=== PATIENT | male | born 1945 | race Two or more races ===

== ENCOUNTER 2018-09-13 01:09 | Inpatient (IN) | payer OTHER ==
[~2018-09-13] VITALS: Ht 175.3 cm; Wt 113.4 kg
[~2018-09-13 01:09] MED LIST: CIPRO500 MG PO; DIOVAN HCT 161 UDTAB PO; NORVASC10 MG; TAMS0.4C PO; TOPROL XL100 MG PO; ULTRACET PO; VASOFLEX FORTE1 CAP PO
[2018-09-13] MEDS ORDERED: NORVASC5 MG (01:25)
[2018-09-13] MEDS ORDERED: LOSARTAN-HCTZ1 EAC2 (01:25)
[2018-09-16] MEDS ORDERED: OSEL75CA PO (12:15)
[2018-09-16] MEDS ORDERED: VENTOLIN HFA18 GM IH (12:16)
[2018-09-16] MEDS ORDERED: CEFDINIR300 MG PO (12:20)
[2018-09-16] MEDS ORDERED: INTESTINEX680 M1 PO (12:20)
[2018-09-16] MEDS ORDERED: ZANTAC150 MG PO (12:21)
== END 2018-09-16 14:10 | disposition home or self-care (01) | DRG 191 ==
LOC: ER 01:09 → MEDJ 13:57
PROVIDERS: ADMIT Internal Medicine
PROC: 4A033R1 Measurement of Arterial Saturation, Peripheral, Percutaneous Approach (ICD-10-PCS; principal; 2018-09-13)
PROC: BB24ZZZ Computerized Tomography (CT Scan) of Bilateral Lungs (ICD-10-PCS; 2018-09-13)
PROC: B246ZZZ Ultrasonography of Right and Left Heart (ICD-10-PCS; 2018-09-13)
PROC: 3E0F7GC Introduction of Other Therapeutic Substance into Respiratory Tract, Via Natural or Artificial Opening (ICD-10-PCS; 2018-09-13)
DX: J44.9 Chronic obstructive pulmonary disease, unspecified (principal); J98.11 Atelectasis; B37.49 Other urogenital candidiasis; R09.02 Hypoxemia; E11.65 Type 2 diabetes mellitus with hyperglycemia; J11.1 Influenza due to unidentified influenza virus with other respiratory manifestations; G47.33 Obstructive sleep apnea (adult) (pediatric); B96.1 Klebsiella pneumoniae [K. pneumoniae] as the cause of diseases classified elsewhere

== ENCOUNTER 2018-09-20 14:57 | Emergency (ER) | payer OTHER ==
[~2018-09-20] VITALS: Ht 167.6 cm; Wt 110.2 kg
[~2018-09-20 14:57] MED LIST changes: +CEFDINIR300 MG PO; +INTESTINEX680 M1 PO; +LOSARTAN-HCTZ1 EAC2; +NORVASC5 MG; +OSEL75CA PO; +VENTOLIN HFA18 GM IH; +ZANTAC150 MG PO
[2018-09-20] MEDS ORDERED: RANITIDINE HCL150 M1 (15:41)
[2018-09-20] MEDS ORDERED: INTESTINEX680 M1 (15:41)
[2018-09-20] MEDS ORDERED: JANUMET XR 50-1 EAC1 (15:42)
[2018-09-20] MEDS ORDERED: VENTOLIN HFA18 GM (15:43)
[2018-09-20] MEDS ORDERED: CEFDINIR300 MG (15:43)
== END 2018-09-20 19:29 | disposition home or self-care (01) ==
LOC: ER 14:57
DX: I10 Essential (primary) hypertension (principal)

== ENCOUNTER 2018-10-09 08:04 | Outpatient (CLI) | payer OTHER ==
[~2018-10-09 08:04] MED LIST changes: +CEFDINIR300 MG; +INTESTINEX680 M1; +JANUMET XR 50-1 EAC1; +RANITIDINE HCL150 M1; +VENTOLIN HFA18 GM
== END 2018-10-09 10:24 | disposition home or self-care (01) ==
LOC: LAB 08:04
DX: N41.8 Other inflammatory diseases of prostate (principal); I10 Essential (primary) hypertension

== ENCOUNTER 2018-10-20 09:13 | Outpatient (CLI) | payer OTHER | END 2018-10-20 09:49 | disposition home or self-care (01) | LOC: LAB 09:13 | DX: E03.1 Congenital hypothyroidism without goiter (principal); E78.5 Hyperlipidemia, unspecified; E11.9 Type 2 diabetes mellitus without complications; N39.0 Urinary tract infection, site not specified; I10 Essential (primary) hypertension; Z12.11 Encounter for screening for malignant neoplasm of colon ==

== ENCOUNTER 2018-10-21 15:51 | Outpatient (CLI) | payer OTHER | END 2018-10-21 16:14 | disposition home or self-care (01) | LOC: LAB 15:51 | DX: E03.1 Congenital hypothyroidism without goiter (principal); E78.5 Hyperlipidemia, unspecified; N39.0 Urinary tract infection, site not specified; E11.9 Type 2 diabetes mellitus without complications; I10 Essential (primary) hypertension; M25.50 Pain in unspecified joint; Z12.11 Encounter for screening for malignant neoplasm of colon ==

== ENCOUNTER 2018-11-17 08:54 | Outpatient (CLI) | payer OTHER | END 2018-11-17 09:07 | disposition home or self-care (01) | LOC: LAB 08:54 | DX: R97.20 Elevated prostate specific antigen [PSA] (principal) ==

== ENCOUNTER 2019-10-31 10:37 | Outpatient (CLI) | payer OTHER | END 2019-10-31 11:00 | disposition home or self-care (01) | LOC: RAD 10:37 | DX: M54.2 Cervicalgia (principal); R13.19 Other dysphagia ==

== ENCOUNTER 2022-02-18 15:04 | Outpatient (CLI) | payer OTHER | END 2022-02-18 15:10 | disposition home or self-care (01) | LOC: RAD 15:04 | PROVIDERS: ATTEND Physical Medicine & Rehabilitation | DX: M54.59 Other low back pain (principal) ==

== ENCOUNTER 2022-05-05 19:10 | Emergency (ER) | payer OTHER ==
[~2022-05-05] VITALS: Ht 175.3 cm; Wt 99.8 kg
[2022-05-05] MEDS ORDERED: NORVASC (19:47)
[2022-05-05] MEDS ORDERED: LOSARTAN (19:47)
== END 2022-05-05 22:35 | disposition home or self-care (01) ==
LOC: ER 19:10
DX: K29.70 Gastritis, unspecified, without bleeding (principal); E11.9 Type 2 diabetes mellitus without complications; Z79.84 Long term (current) use of oral hypoglycemic drugs; I10 Essential (primary) hypertension

== ENCOUNTER 2022-05-08 10:50 | Inpatient (IN) | payer OTHER ==
[~2022-05-08] VITALS: Ht 175.3 cm; Wt 99.8 kg
[~2022-05-08 10:50] MED LIST changes: +LOSARTAN; +NORVASC
[2022-05-09] MEDS ORDERED: OXYBUTYNIN CHLO10 MG (08:20)
[2022-05-09] MEDS ORDERED: LOSARTAN-HCTZ1 EAC2 (08:20)
[2022-05-09] MEDS ORDERED: DOXAZOSIN MESYLA2 MG (08:20)
[2022-05-09] MEDS ORDERED: TAMSULOSIN HCL0.4 MG (08:20)
[2022-05-09] MEDS ORDERED: FAMOTIDINE40 MG (08:20)
[2022-05-09] MEDS ORDERED: METOPROLOL SUC100 MG (08:20)
[2022-05-09] MEDS ORDERED: AMLODIPINE BESYL5 MG (08:20)
[2022-05-09] MEDS ORDERED: GLIPIZIDE ER2.5 MG (08:20)
[2022-05-09] MEDS ORDERED: FENOFIBRATE145 MG (08:20)
[2022-05-09] MEDS ORDERED: PANTOPRAZOLE SO40 MG (08:21)
[2022-05-09] MEDS ORDERED: BUPROPION XL300 MG (08:21)
== END 2022-05-25 15:20 | disposition home or self-care (01) | DRG 445 ==
LOC: ER 10:50 → SURG 23:16 → SURH 05-20 11:39
PROVIDERS: ADMIT Internal Medicine; ATTEND Internal Medicine
PROC: BW21YZZ Computerized Tomography (CT Scan) of Abdomen and Pelvis using Other Contrast (ICD-10-PCS; principal; 2022-05-08)
PROC: CF241ZZ Tomographic (Tomo) Nuclear Medicine Imaging of Gallbladder using Technetium 99m (Tc-99m) (ICD-10-PCS; 2022-05-09)
DX: K81.0 Acute cholecystitis (principal); A04.72 Enterocolitis due to Clostridium difficile, not specified as recurrent; E11.9 Type 2 diabetes mellitus without complications; I10 Essential (primary) hypertension; Z20.822 Contact with and (suspected) exposure to COVID-19; G47.33 Obstructive sleep apnea (adult) (pediatric)

== ENCOUNTER → 2022-07-16 10:50 | Outpatient (CLI) | payer OTHER ==
[~2022-07-16 10:50] MED LIST changes: +AMLODIPINE BESYL5 MG; +BUPROPION XL300 MG; +DOXAZOSIN MESYLA2 MG; +FAMOTIDINE40 MG; +FENOFIBRATE145 MG; +GLIPIZIDE ER2.5 MG; +METOPROLOL SUC100 MG; +OXYBUTYNIN CHLO10 MG; +PANTOPRAZOLE SO40 MG; +TAMSULOSIN HCL0.4 MG
== END | disposition home or self-care (01) ==
LOC: LAB 10:50
DX: N39.0 Urinary tract infection, site not specified (principal); E11.9 Type 2 diabetes mellitus without complications; I10 Essential (primary) hypertension; D50.9 Iron deficiency anemia, unspecified; E78.2 Mixed hyperlipidemia

== ENCOUNTER 2022-09-01 14:03 | Outpatient (CLI) | payer OTHER | END 2022-09-01 14:11 | disposition home or self-care (01) | LOC: LAB 14:03 | PROVIDERS: ATTEND Internal Medicine | DX: R19.7 Diarrhea, unspecified (principal); R10.9 Unspecified abdominal pain; R10.84 Generalized abdominal pain ==

== ENCOUNTER 2022-09-11 08:52 | Outpatient (CLI) | payer OTHER | END 2022-09-11 08:53 | disposition home or self-care (01) | LOC: NUCLEAR 08:52 | PROVIDERS: ATTEND Internal Medicine Cardiovascular Disease | DX: I20.1 Angina pectoris with documented spasm (principal) | CPT/HCPCS: 78452; 93017; A9500; J0153 ==

== ENCOUNTER 2023-01-15 10:15 | Outpatient (CLI) | payer OTHER | END 2023-01-15 10:22 | disposition home or self-care (01) | LOC: LAB 10:15 | PROVIDERS: ATTEND Internal Medicine | DX: N39.0 Urinary tract infection, site not specified (principal); M25.50 Pain in unspecified joint; R19.5 Other fecal abnormalities; E11.9 Type 2 diabetes mellitus without complications; E03.1 Congenital hypothyroidism without goiter; N40.0 Benign prostatic hyperplasia without lower urinary tract symptoms; Z12.11 Encounter for screening for malignant neoplasm of colon; E78.2 Mixed hyperlipidemia; R19.7 Diarrhea, unspecified; N18.9 Chronic kidney disease, unspecified; Z87.442 Personal history of urinary calculi; D50.9 Iron deficiency anemia, unspecified ==

== ENCOUNTER 2023-03-10 08:49 | Outpatient (CLI) | payer OTHER | END 2023-03-10 09:00 | disposition home or self-care (01) | LOC: LAB 08:49 | PROVIDERS: ATTEND Psychiatry & Neurology Clinical Neurophysiology | DX: E53.8 Deficiency of other specified B group vitamins (principal); E03.8 Other specified hypothyroidism; R27.0 Ataxia, unspecified ==

== ENCOUNTER 2023-03-12 10:09 | Outpatient (CLI) | payer OTHER | END 2023-03-12 10:12 | disposition home or self-care (01) | LOC: MRI 10:09 | PROVIDERS: ATTEND Psychiatry & Neurology Clinical Neurophysiology | DX: G11.2 Late-onset cerebellar ataxia (principal) | CPT/HCPCS: 70551 ==

== ENCOUNTER 2024-09-05 22:18 | Emergency (ER) | payer OTHER ==
[~2024-09-05] VITALS: Ht 175.3 cm; Wt 98.4 kg
[2024-09-06] MEDS ORDERED: OxyCODONE HCL/APAP UD (PERCOCET) PO STA (00:25)
[2024-09-06] MEDS ORDERED: KETOROLAC TROMETHAMINE 30 MG VIAL IV STA (00:25)
[2024-09-06 00:52] LABS: HEMATOCRIT 39.6 % (39.0-48.0); HEMOGLOBIN 13.3 g/dL (13-16.00); MEAN CELL VOLUME 88.9 fL (80.0-100.00); MEAN CORPUSCULAR HEMOGLOBIN 29.8 pg (27.00-32.0); MEAN CORPUSCULAR HGB CONC 33.5 g/dl (32.0-36.0); PLATELET COUNT 321 K/uL (150-450); RED BLOOD COUNT 4.46 M/uL (4.00-6.00); RED CELL DISTRIBUTION WIDTH 15.9 % (11.5-14.5)
[2024-09-06 01:10] LABS: PH,URINE 7.5 (5.0-8.0); URINE APPEARANCE Clear; URINE BILIRRUBIN Negative (NEGATIVE); URINE BLOOD Negative; URINE COLOR Yellow; URINE KETONE Negative (NEGATIVE); URINE LEUKOCYTE Negative; URINE NITRATE Negative; URINE PROTEIN Trace (NEGATIVE)
[2024-09-06 01:14] LABS: URINE RBC 2.7 uL (0.0-20.8); URINE WBC 10.2 uL (0.0-23.2)
[2024-09-06 01:18] LABS: CALCIUM 9.7 mg/dL (8.5-10.1); CREATININE SERUM 0.95 mg/dL (0.70-1.30); GFR 76.67; POTASSIUM 3.26 mEq/L (3.5-5.1)
[2024-09-06 01:19] LABS: URINE BACTERIA 3.6 uL (0.0-1933); URINE CAST 0.14 uL (0.0-1.40); URINE EPITHELIAL CELLS 1.2 uL (0.0-38.8); URINE GLUCOSE 100 MG/DL (NEGATIVE)
== END 2024-09-06 03:56 | disposition home or self-care (01) ==
LOC: ER 22:21
DX: N13.8 Other obstructive and reflux uropathy (principal); N40.0 Benign prostatic hyperplasia without lower urinary tract symptoms
CPT/HCPCS: 36415; 96372; 99282; J1885

== ENCOUNTER → 2025-02-07 13:23 | Outpatient (CLI) | payer OTHER ==
[2025-02-07 15:31] LABS: CREATININE SERUM 1.17 mg/dL (0.70-1.30)
== END | disposition home or self-care (01) ==
LOC: LAB 13:23
PROVIDERS: ATTEND Radiology Diagnostic Radiology
DX: R10.11 Right upper quadrant pain (principal)

== ENCOUNTER 2025-02-15 10:43 | Outpatient (CLI) | payer OTHER | END 2025-02-15 10:47 | disposition home or self-care (01) | LOC: MRI 10:43 | PROVIDERS: ATTEND Internal Medicine Gastroenterology | DX: R10.11 Right upper quadrant pain (principal) | CPT/HCPCS: 74183 ==

== ENCOUNTER 2025-04-22 18:06 | Inpatient (IN) | payer OTHER ==
[~2025-04-22] VITALS: Ht 152.4 cm; Wt 88.5 kg
[2025-04-22] MEDS ORDERED: 0.9 % SODIUM CHLORIDE 1,000 ML IV STA (19:37)
[2025-04-22] MEDS ORDERED: ONDANSETRON HCL 2 MG/ML VIAL IV STA (19:38)
[2025-04-22] MEDS ORDERED: FAMOtidine 10 MG/ML (4ML VIAL) IV PUSH STA (19:38)
[2025-04-22 19:54] LABS: BASO % 0.1 % (0.1-1.2); EOS # 0.03 (0.04-0.54); EOS % 0.2 % (0.7-7.0); LYMPH # 0.56 (1.18-3.74); LYMPH % 3.6 % (19.3-53.1); MEAN PLATELET VOLUME 10.40 fl (9.4-12.4); MONO # 0.65 (0.24-0.82); MONO % 4.1 % (4.7-12.5); NEUT # 14.28 (1.56-6.13); NEUT % 91.1 % (34.0-71.1); RED CELL DISTRIBUTION WIDTH 14.6 % (11.6-14.4)
[2025-04-22 20:54] LABS: ALT/SGPT 58.0 U/L (12-78); AST/SGOT 61.0 U/L (15-37); BILIRUBIN TOTAL 4.99 mg/dL (0.3-1.2); BUN CREA RATIO 15.0 (7.0-25.0); CREATININE SERUM 0.93 mg/dL (0.70-1.30); GFR 78.38; GLOBULINA 5.5 G/DL (2.4-3.5); GLUCOSE FASTING 140.0 mg/dL (65-100); OSMOLALITY SERUM 271.0 MOSM/KG (275-295)
[2025-04-22] MEDS ORDERED: CEFTRIAXONE SODIUM 2,000 MG VIAL IV STA (23:25)
[2025-04-22 23:26] LABS: URINE APPEARANCE Clear; URINE BILIRRUBIN Moderate (NEGATIVE); URINE BLOOD Small; URINE COLOR Dark Yellow; URINE GLUCOSE Negative (NEGATIVE); URINE KETONE Negative (NEGATIVE); URINE LEUKOCYTE Trace; URINE NITRATE Negative; URINE PROTEIN 30 (NEGATIVE)
[2025-04-22 23:29] LABS: URINE BACTERIA 19.1 uL (0.0-1933); URINE EPITHELIAL CELLS 10.9 uL (0.0-38.8); URINE RBC 143.1 uL (0.0-20.8); URINE WBC 17.8 uL (0.0-23.2)
[2025-04-22 23:38] LABS: URINE CAST 0.14 uL (0.0-1.40); URINE UROBILINOGEN 4.0 E.U./dl
[2025-04-23] MEDS ORDERED: PIPERACILLIN/TAZOBACTAM SODIUM 4.5 GM in 0.9 % SODIUM CHLORIDE 100 ML IV SCH (19:09)
[2025-04-23] MEDS ORDERED: LOSARTAN/HYDROCHLOROTHIAZIDE 1 TAB TABLET PO SCH (19:13)
[2025-04-23] MEDS ORDERED: MORPHINE SULFATE 2 MG/ML CARTRIDGE IV PRN (19:15)
[2025-04-23] MEDS ORDERED: DEXTROSE 50 % IN WATER 0.5 G/ML DISP.SYRIN IV PRN (19:15)
[2025-04-23] MEDS ORDERED: ONDANSETRON HCL 4 MG in 0.9 % SODIUM CHLORIDE 50 ML IV PRN (19:15)
[2025-04-23] MEDS ORDERED: INSULIN LISPRO 1,000 UNIT/10 ML UNITS SUBCUTANEO PRN (19:15)
[2025-04-23] MEDS ORDERED: 0.9 % SODIUM CHLORIDE 1,000 ML IV SCH (19:15)
[2025-04-23 20:48] VITALS: BP 160/83
[2025-04-23 21:00] LABS: INR 1.31
[2025-04-24 03:00] VITALS: BP 152/75; O2SAT 98
[2025-04-24 08:15] VITALS: BP 153/60; O2SAT 97
[2025-04-24] MEDS ORDERED: DEXTROSE 50 % IN WATER 0.5 G/ML VIAL IV PRN (14:00)
[2025-04-24 16:00] VITALS: BP 158/78; O2SAT 98
[2025-04-25 01:16] VITALS: BP 176/91; O2SAT 96
[2025-04-25] MEDS ORDERED: AMLODIPINE BESYLATE 5 MG TABLET PO NR (10:00)
[2025-04-25 10:08] VITALS: BP 165/75; O2SAT 98
[2025-04-25 16:33] VITALS: BP 150/80; O2SAT 97
[2025-04-25] MEDS ORDERED: DOXAZOSIN MESYLATE 2 MG TABLET PO SCH (21:00)
[2025-04-26 01:39] VITALS: BP 152/81; O2SAT 98
[2025-04-26 08:00] VITALS: BP 152/77; O2SAT 97
[2025-04-26] MEDS ORDERED: AMLODIPINE BESYLATE 5 MG TABLET PO SCH (09:00)
[2025-04-26 11:44] LABS: BASO % 1.1 % (0.1-1.2); EOS # 0.31 (0.04-0.54); EOS % 3.1 % (0.7-7.0); LYMPH # 1.73 (1.18-3.74); LYMPH % 17.1 % (19.3-53.1); MEAN PLATELET VOLUME 11.50 fl (9.4-12.4); MONO # 0.53 (0.24-0.82); MONO % 5.3 % (4.7-12.5); NEUT # 7.30 (1.56-6.13); NEUT % 72.3 % (34.0-71.1); RED CELL DISTRIBUTION WIDTH 14.7 % (11.6-14.4)
[2025-04-26 12:25] LABS: INR 1.27
[2025-04-26 12:37] LABS: BUN CREA RATIO 18.0 (7.0-25.0); CREATININE SERUM 0.72 mg/dL (0.70-1.30); GFR 105.31; GLUCOSE FASTING 108.0 mg/dL (65-100); OSMOLALITY SERUM 276.0 MOSM/KG (275-295)
[2025-04-26 17:39] VITALS: BP 156/78; O2SAT 97
[2025-04-26] MEDS ORDERED: PIPERACILLIN/TAZOBACTAM SODIUM 3.375 GM in 0.9 % SODIUM CHLORIDE 100 ML IV SCH (18:00)
[2025-04-26 21:08] LABS: URINE APPEARANCE Clear; URINE BILIRRUBIN Moderate (NEGATIVE); URINE BLOOD Negative; URINE COLOR Dark Yellow; URINE GLUCOSE Negative (NEGATIVE); URINE KETONE 15 (NEGATIVE); URINE LEUKOCYTE Trace; URINE NITRATE Negative; URINE PROTEIN 30 (NEGATIVE); URINE UROBILINOGEN 1.0 E.U./dl
[2025-04-26 21:09] LABS: URINE BACTERIA 29.9 uL (0.0-1933); URINE EPITHELIAL CELLS 6.7 uL (0.0-38.8); URINE RBC 4.5 uL (0.0-20.8); URINE WBC 1.8 uL (0.0-23.2)
[2025-04-26 21:11] LABS: URINE CAST 0.43 uL (0.0-1.40)
[2025-04-27 00:46] VITALS: BP 152/83; O2SAT 97
[2025-04-27] MEDS ORDERED: SODIUM CL 0.9% 100 ML IV.SOLN IV ONE (08:23)
[2025-04-27] MEDS ORDERED: GLUCAGON 1 MG VIAL ONE (10:03)
[2025-04-27] MEDS ORDERED: IOVERSOL 320 MG/ML - 50 ML VIAL IV ONE ×2 (10:03→11:15)
[2025-04-27] MEDS ORDERED: SUGAMMADEX SODIUM 200 MG/2 ML VIAL IV ONE (11:40)
[2025-04-27] MEDS ORDERED: ENALAPRILAT DIHYDRATE 1.25 MG/ML VIAL IV NR (13:15)
[2025-04-27] MEDS ORDERED: ENALAPRILAT DIHYDRATE 1.25 MG/ML VIAL IV ONE (13:16)
[2025-04-27 16:50] VITALS: BP 165/85; O2SAT 98
[2025-04-27] MEDS ORDERED: MORPHINE SULFATE 2 MG/ML CARTRIDGE IV PRN (20:00)
[2025-04-28] VITALS: BP 169/84; O2SAT 97
[2025-04-28] MEDS ORDERED: SODIUM CL 0.9% 100 ML IV.SOLN IV ONE (04:20)
[2025-04-28 06:00] VITALS: BP 157/94
[2025-04-28 08:40] VITALS: BP 177/88
[2025-04-28 09:08] LABS: % FREE PSA 12.1 % (.)
[2025-04-28 16:11] VITALS: BP 174/90; O2SAT 98
[2025-04-28 20:00] VITALS: BP 188/88; O2SAT 98
[2025-04-28 21:00] VITALS: BP 159/79
[2025-04-29 00:24] VITALS: BP 149/83; O2SAT 98
[2025-04-29 07:39] LABS: BASO % 0.7 % (0.1-1.2); EOS # 0.27 (0.04-0.54); EOS % 2.2 % (0.7-7.0); LYMPH # 2.22 (1.18-3.74); LYMPH % 17.7 % (19.3-53.1); MEAN PLATELET VOLUME 10.60 fl (9.4-12.4); MONO # 0.78 (0.24-0.82); MONO % 6.2 % (4.7-12.5); NEUT # 9.00 (1.56-6.13); NEUT % 72.0 % (34.0-71.1); RED CELL DISTRIBUTION WIDTH 14.9 % (11.6-14.4)
[2025-04-29 07:47] LABS: ALT/SGPT 34.0 U/L (12-78); AST/SGOT 27.0 U/L (15-37); BILIRUBIN TOTAL 1.07 mg/dL (0.3-1.2); BUN CREA RATIO 10.0 (7.0-25.0); CREATININE SERUM 0.88 mg/dL (0.70-1.30); GFR 83.54; GLOBULINA 5.2 G/DL (2.4-3.5); GLUCOSE FASTING 105.0 mg/dL (65-100); OSMOLALITY SERUM 282.0 MOSM/KG (275-295)
[2025-04-29 09:58] VITALS: BP 141/84; O2SAT 98
[2025-04-29 16:00] VITALS: BP 184/67; O2SAT 98
[2025-04-30 01:35] VITALS: BP 153/84; O2SAT 98
[2025-04-30 08:49] VITALS: BP 167/91; O2SAT 98
[2025-04-30 16:00] VITALS: BP 158/95; O2SAT 99
[2025-05-01 03:14] VITALS: BP 166/85; O2SAT 98
[2025-05-01 08:00] VITALS: BP 160/88; O2SAT 98
[2025-05-01] MEDS ORDERED: PIPERACILLIN/TAZOBACTAM SODIUM 3.375 GM in 0.9 % SODIUM CHLORIDE 100 ML IV SCH (12:00)
[2025-05-01 16:00] VITALS: BP 170/80; O2SAT 99
[2025-05-02 00:36] VITALS: BP 163/77; O2SAT 99
[2025-05-02 08:00] VITALS: BP 170/88; O2SAT 99
[2025-05-02] MEDS ORDERED: AMLODIPINE BESYLATE 10 MG TABLET PO SCH (09:00)
[2025-05-02] MEDS ORDERED: METOPROLOL SUCCINATE 100 MG TAB.SR.24H PO SCH (09:01)
[2025-05-03 01:12] VITALS: BP 154/76; O2SAT 98
== END 2025-05-02 17:00 | disposition home or self-care (01) | DRG 446 ==
LOC: ER 18:06 → SURH 04-23 19:53
PROVIDERS: General Practice; Internal Medicine; Internal Medicine Infectious Disease; Student in an Organized Health Care Education/Training Program; ADMIT Internal Medicine; ATTEND Internal Medicine
PROC: BW40ZZZ Ultrasonography of Abdomen (ICD-10-PCS; 2025-04-22)
PROC: BF37ZZZ Magnetic Resonance Imaging (MRI) of Pancreas (ICD-10-PCS; 2025-04-23)
PROC: 0F998ZZ Drainage of Common Bile Duct, Via Natural or Artificial Opening Endoscopic (ICD-10-PCS; 2025-04-27)
PROC: XFJB8A7 Inspection of Hepatobiliary Duct using Single-use Duodenoscope, New Technology Group 7 (ICD-10-PCS; 2025-04-27)
PROC: 0FC98ZZ Extirpation of Matter from Common Bile Duct, Via Natural or Artificial Opening Endoscopic (ICD-10-PCS; principal; 2025-04-27 09:00)
PROC: BV44ZZZ Ultrasonography of Scrotum (ICD-10-PCS; 2025-04-28)
DX: K80.62 Calculus of gallbladder and bile duct with acute cholecystitis without obstruction (principal); I10 Essential (primary) hypertension; E11.9 Type 2 diabetes mellitus without complications; Z79.4 Long term (current) use of insulin; G47.33 Obstructive sleep apnea (adult) (pediatric); E66.01 Morbid (severe) obesity due to excess calories; N45.1 Epididymitis

== ENCOUNTER 2025-05-06 18:43 | Inpatient (IN) | payer OTHER ==
[~2025-05-06] VITALS: Ht 175.3 cm; Wt 88.5 kg
[2025-05-06] MEDS ORDERED: LABETALOL HCL 100 MG/20 ML ML IV PUSH ONE (21:45)
[2025-05-06 21:57] LABS: BASO % 1.1 % (0.1-1.2); EOS # 0.37 (0.04-0.54); EOS % 2.3 % (0.7-7.0); LYMPH # 2.33 (1.18-3.74); LYMPH % 14.6 % (19.3-53.1); MEAN PLATELET VOLUME 10.70 fl (9.4-12.4); MONO # 1.31 (0.24-0.82); MONO % 8.2 % (4.7-12.5); NEUT # 11.66 (1.56-6.13); NEUT % 73.2 % (34.0-71.1); RED CELL DISTRIBUTION WIDTH 15.0 % (11.6-14.4)
[2025-05-06 22:25] LABS: ALT/SGPT 27.0 U/L (12-78); AST/SGOT 24.0 U/L (15-37); BILIRUBIN TOTAL 0.76 mg/dL (0.3-1.2); BUN CREA RATIO 15.0 (7.0-25.0); CREATININE SERUM 1.23 mg/dL (0.70-1.30); GFR 56.76; GLOBULINA 5.1 G/DL (2.4-3.5); OSMOLALITY SERUM 294.0 MOSM/KG (275-295)
[2025-05-06 22:27] LABS: GLUCOSE FASTING 200.0 mg/dL (65-100)
[2025-05-06] MEDS ORDERED: CEFTRIAXONE SODIUM 2,000 MG in 0.9 % SODIUM CHLORIDE 100 ML IV SCH (23:21)
[2025-05-06] MEDS ORDERED: AMLODIPINE BESYLATE 5 MG TABLET PO SCH (23:22)
[2025-05-06] MEDS ORDERED: CARVEDILOL 6.25 MG TABLET PO SCH (23:23)
[2025-05-06] MEDS ORDERED: DEXTROSE 50 % IN WATER 0.5 G/ML DISP.SYRIN IV PRN (23:30)
[2025-05-06] MEDS ORDERED: ACETAMINOPHEN 500 MG GEL..CAP PO PRN (23:30)
[2025-05-06] MEDS ORDERED: INSULIN LISPRO 1,000 UNIT/10 ML UNITS SUBCUTANEO PRN (23:30)
[2025-05-06] MEDS ORDERED: POTASSIUM CHLORIDE 20MEQ/100ML H2O PB IV ONE (23:45)
[2025-05-07 00:25] LABS: ABG PH 7.411 (7.35-7.45); ABG PO2 77.6 mmHg (80-100); BICARBONATE 24.5 mmol/l (23-25)
[2025-05-07 00:26] LABS: o2 21 %
[2025-05-07 00:55] LABS: INR 1.11
[2025-05-07] MEDS ORDERED: IPRATROPIUM BROMIDE 0.5 MG/2.5 ML AMPUL.NEB IH SCH (01:00)
[2025-05-07 02:53] LABS: URINE APPEARANCE Clear; URINE BILIRRUBIN Negative (NEGATIVE); URINE BLOOD Negative; URINE COLOR Yellow; URINE GLUCOSE Negative (NEGATIVE); URINE KETONE Negative (NEGATIVE); URINE LEUKOCYTE Trace; URINE NITRATE Negative; URINE PROTEIN Negative (NEGATIVE); URINE UROBILINOGEN 0.2 E.U./dl
[2025-05-07 02:57] LABS: URINE BACTERIA 4.7 uL (0.0-1933); URINE EPITHELIAL CELLS 4.9 uL (0.0-38.8); URINE RBC 3.5 uL (0.0-20.8); URINE WBC 14.5 uL (0.0-23.2)
[2025-05-07 02:58] LABS: URINE CAST 0.87 uL (0.0-1.40)
[2025-05-07 06:21] VITALS: BP 161/88; O2SAT 96
[2025-05-07] MEDS ORDERED: LOSARTAN/HYDROCHLOROTHIAZIDE 1 TAB TABLET PO SCH (09:00)
[2025-05-07] MEDS ORDERED: FAMOTIDINE/PF 20 MG in 0.9 % SODIUM CHLORIDE 8 ML IV PUSH SCH (09:00)
[2025-05-07] MEDS ORDERED: TAMSULOSIN HCL 0.4 MG CAP PO SCH (09:00)
[2025-05-07 09:01] VITALS: BP 157/89
[2025-05-07 09:06] LABS: TSH 1.58 uIU/mL (0.358-3.74)
[2025-05-07 09:21] LABS: PROSTATIC SPECIFIC ANTIGEN 24.7 NG/ML (0.010-4.00)
[2025-05-07] MEDS ORDERED: MEROPENEM 500 MG/VIAL VIAL IV NR (14:30)
[2025-05-07 18:11] VITALS: BP 148/78
[2025-05-07] MEDS ORDERED: MEROPENEM 500 MG/VIAL VIAL IV SCH (20:00)
[2025-05-08 00:51] VITALS: BP 157/85; O2SAT 100
[2025-05-08 08:14] VITALS: BP 147/82
[2025-05-08 08:32] LABS: BUN CREA RATIO 15.0 (7.0-25.0); CREATININE SERUM 1.78 mg/dL (0.70-1.30); GFR 37.05; GLUCOSE FASTING 128.0 mg/dL (65-100); OSMOLALITY SERUM 291.0 MOSM/KG (275-295)
[2025-05-08 08:33] LABS: ALT/SGPT 21.0 U/L (12-78); AST/SGOT 26.0 U/L (15-37); BILIRUBIN TOTAL 0.68 mg/dL (0.3-1.2); GLOBULINA 4.5 G/DL (2.4-3.5)
[2025-05-08] MEDS ORDERED: POTASSIUM BICARBONATE/CIT AC 25 MEQ TABLET.EFF PO SCH (09:00)
[2025-05-08] MEDS ORDERED: (FF) Daptomycin 50 MG/ML IV SCH (13:00)
[2025-05-08 16:02] VITALS: BP 146/81; O2SAT 99
[2025-05-09 00:42] VITALS: BP 160/90; O2SAT 99
[2025-05-09 08:55] VITALS: BP 160/90; O2SAT 98
[2025-05-09] MEDS ORDERED: MEROPENEM 500 MG/VIAL VIAL IV SCH (09:00)
[2025-05-09] MEDS ORDERED: AMLODIPINE BESYLATE 5 MG TABLET PO SCH (17:00)
[2025-05-09 17:20] VITALS: BP 138/85; O2SAT 96
[2025-05-10 02:24] VITALS: BP 165/90; O2SAT 97
[2025-05-10 07:22] LABS: BUN CREA RATIO 24.0 (7.0-25.0); CREATININE SERUM 1.07 mg/dL (0.70-1.30); GFR 66.67; GLUCOSE FASTING 118.0 mg/dL (65-100); OSMOLALITY SERUM 293.0 MOSM/KG (275-295); PHOSPHOKINASE CREATININE 54.0 U/L (39-308)
[2025-05-10 07:23] LABS: BASO % 0.9 % (0.1-1.2); EOS # 0.32 (0.04-0.54); EOS % 3.3 % (0.7-7.0); LYMPH # 2.26 (1.18-3.74); LYMPH % 23.5 % (19.3-53.1); MEAN PLATELET VOLUME 12.50 fl (9.4-12.4); MONO # 0.88 (0.24-0.82); MONO % 9.2 % (4.7-12.5); NEUT # 6.02 (1.56-6.13); NEUT % 62.7 % (34.0-71.1); RED CELL DISTRIBUTION WIDTH 14.7 % (11.6-14.4)
[2025-05-10 09:05] VITALS: BP 140/70
[2025-05-10 17:40] VITALS: BP 137/77; O2SAT 100
[2025-05-10] MEDS ORDERED: MEROPENEM 500 MG/VIAL VIAL IV SCH (18:00)
[2025-05-11 08:00] VITALS: BP 158/86; O2SAT 94
[2025-05-11 16:45] VITALS: BP 127/68
[2025-05-12 00:41] VITALS: BP 139/74; O2SAT 99
[2025-05-12 09:33] VITALS: BP 127/65; O2SAT 95
[2025-05-12 17:22] VITALS: BP 141/75; O2SAT 99
[2025-05-13 01:20] VITALS: BP 126/71; O2SAT 97
[2025-05-13 08:53] VITALS: BP 112/73
[2025-05-13] MEDS ORDERED: INSULIN NPH HUM/REG INSULIN HM 1,000 UNIT/10 ML UNITS SUBCUTANEO STA (10:18)
[2025-05-13 17:46] VITALS: BP 149/85
[2025-05-14 01:02] VITALS: BP 140/84
[2025-05-14] MEDS ORDERED: INSULIN NPH HUM/REG INSULIN HM 1,000 UNIT/10 ML UNITS SUBCUTANEO SCH (08:00)
[2025-05-14 09:08] VITALS: BP 149/75
[2025-05-14 17:43] VITALS: BP 146/78
[2025-05-15 00:56] VITALS: BP 158/88
[2025-05-15 09:28] VITALS: BP 155/90
[2025-05-15] MEDS ORDERED: MEROPENEM 500 MG/VIAL VIAL IV SCH (12:00)
[2025-05-15 17:44] VITALS: BP 128/82
[2025-05-16 02:02] VITALS: BP 132/71; O2SAT 97
[2025-05-16 08:22] VITALS: BP 112/73; O2SAT 98
[2025-05-16 16:22] VITALS: BP 112/66
[2025-05-17 02:30] VITALS: BP 121/71; O2SAT 99
[2025-05-17 08:36] VITALS: BP 112/75; O2SAT 99
== END 2025-05-17 15:15 | disposition home or self-care (01) | DRG 690 ==
LOC: ER 18:43 → MEDI 05-07 00:04 → ICU-2 05-07 00:04 → MEDI 05-07 01:16
PROVIDERS: General Practice; Internal Medicine Nephrology; ADMIT Internal Medicine; ATTEND Internal Medicine
PROC: BW21ZZZ Computerized Tomography (CT Scan) of Abdomen and Pelvis (ICD-10-PCS; principal; 2025-05-06)
PROC: B24BZZZ Ultrasonography of Heart with Aorta (ICD-10-PCS; 2025-05-06)
DX: N39.0 Urinary tract infection, site not specified (principal); N17.9 Acute kidney failure, unspecified; N41.0 Acute prostatitis; I50.20 Unspecified systolic (congestive) heart failure; N45.1 Epididymitis; N13.9 Obstructive and reflux uropathy, unspecified; E11.65 Type 2 diabetes mellitus with hyperglycemia; Z79.4 Long term (current) use of insulin; B95.7 Other staphylococcus as the cause of diseases classified elsewhere; E78.5 Hyperlipidemia, unspecified; I11.0 Hypertensive heart disease with heart failure

== ENCOUNTER 2025-05-18 21:38 | Inpatient (IN) | payer OTHER ==
[~2025-05-18] VITALS: Ht 175.3 cm; Wt 88.5 kg
[2025-05-18 22:28] LABS: BASO % 0.9 % (0.1-1.2); EOS # 0.21 (0.04-0.54); EOS % 2.3 % (0.7-7.0); LYMPH # 2.33 (1.18-3.74); LYMPH % 25.4 % (19.3-53.1); MEAN PLATELET VOLUME 10.80 fl (9.4-12.4); MONO # 0.90 (0.24-0.82); MONO % 9.8 % (4.7-12.5); NEUT # 5.57 (1.56-6.13); NEUT % 60.6 % (34.0-71.1); RED CELL DISTRIBUTION WIDTH 14.6 % (11.6-14.4)
[2025-05-18 22:51] LABS: ALT/SGPT 30.0 U/L (12-78); AST/SGOT 25.0 U/L (15-37); BILIRUBIN TOTAL 0.5 mg/dL (0.3-1.2); BUN CREA RATIO 19.0 (7.0-25.0); CREATININE SERUM 2.32 mg/dL (0.70-1.30); GFR 27.29; GLOBULINA 4.5 G/DL (2.4-3.5); GLUCOSE FASTING 102.0 mg/dL (65-100); OSMOLALITY SERUM 287.0 MOSM/KG (275-295)
[2025-05-18] MEDS ORDERED: TAMSULOSIN HCL 0.4 MG CAP PO SCH (23:09)
[2025-05-18] MEDS ORDERED: FAMOTIDINE/PF 20 MG in 0.9 % SODIUM CHLORIDE 8 ML IV PUSH SCH (23:10)
[2025-05-18] MEDS ORDERED: ACETAMINOPHEN 500 MG GEL..CAP PO PRN (23:15)
[2025-05-18] MEDS ORDERED: ONDANSETRON HCL 4 MG in 0.9 % SODIUM CHLORIDE 50 ML IV PRN (23:15)
[2025-05-18] MEDS ORDERED: 0.9 % SODIUM CHLORIDE 1,000 ML IV SCH (23:15)
[2025-05-19] MEDS ORDERED: TAMSULOSIN HCL 0.4 MG CAP PO ONE (00:26)
[2025-05-19] MEDS ORDERED: levoFLOXacin IN DEXTROSE 5 % 500MG/100ML PIGGYBAG IV ONE (00:26)
[2025-05-19] MEDS ORDERED: FAMOTIDINE/PF 20 MG/2 ML VIAL ONE (00:26)
[2025-05-19 01:19] VITALS: BP 116/61
[2025-05-19 02:00] VITALS: BP 105/62; O2SAT 97
[2025-05-19 06:05] VITALS: BP 98/57; O2SAT 96
[2025-05-19 06:54] LABS: INR 1.17
[2025-05-19 07:01] LABS: ALT/SGPT 24.0 U/L (12-78); AST/SGOT 16.0 U/L (15-37); BILIRUBIN TOTAL 0.35 mg/dL (0.3-1.2); BUN CREA RATIO 22.0 (7.0-25.0); CREATININE SERUM 1.7 mg/dL (0.70-1.30); GFR 39.07; GLOBULINA 3.8 G/DL (2.4-3.5); GLUCOSE FASTING 85.0 mg/dL (65-100); OSMOLALITY SERUM 290.0 MOSM/KG (275-295)
[2025-05-19 08:27] VITALS: BP 95/58
[2025-05-19] MEDS ORDERED: AMLODIPINE BESYLATE 5 MG TABLET PO SCH (09:00)
== END 2025-05-19 18:39 | disposition home or self-care (01) | DRG 684 ==
LOC: ER 21:38 → MEDI 23:12
PROVIDERS: General Practice; ADMIT Internal Medicine; ATTEND Internal Medicine
DX: N17.9 Acute kidney failure, unspecified (principal); R33.8 Other retention of urine

== ENCOUNTER 2025-07-03 14:10 | Outpatient (CLI) | payer OTHER | END 2025-07-03 14:18 | disposition home or self-care (01) | LOC: SONOGRAMA 14:10 | PROVIDERS: ATTEND Urology | DX: N40.0 Benign prostatic hyperplasia without lower urinary tract symptoms (principal) ==

== ENCOUNTER 2025-08-11 07:19 | Outpatient (CLI) | payer OTHER | END 2025-08-11 07:20 | disposition home or self-care (01) | LOC: NUCLEAR 07:19 | PROVIDERS: ATTEND Internal Medicine | DX: I20.9 Angina pectoris, unspecified (principal) | CPT/HCPCS: 78452; 93017; A9500 ==